=== PATIENT | female | born 1960 | race Caucasian/White ===

== ENCOUNTER 2021-04-17 04:48 | Emergency (ER) | payer BC ==
[2021-04-17] MEDS ORDERED: Ketorolac 30 MG/ML SDV IM ONE (05:09)
[2021-04-17] MEDS ORDERED: Ondansetron 4 MG Tab.DIS PO ONE (05:10)
--- NOTE | 2021-04-17 06:03 | CT ---
For Patients: As a result of the Century Cures Act, medical imaging exams and procedure reports are released immediately into your electronic medical record. You may view this report before your referring provider. If you have questions, please contact your health care provider. INDICATION: Left flank pain. TECHNIQUE: CT abdomen and pelvis without intravenous contrast. Coronal and sagittal reformats. COMPARISON: None available. FINDINGS: Imaged lower chest unremarkable. The unenhanced liver, gallbladder, pancreas, spleen, and adrenals are unremarkable. Symmetric renal size. Left ureterovesical junction 4 mm calculus (series 201, image 144) with mild upstream hydroureteronephrosis. No additional urolithiasis or right-sided hydronephrosis. Decompressed urinary bladder. Anteverted uterus with exophytic fibroid anteriorly measuring up to approximately 4.5 cm, likely exerting mass effect on the urinary bladder (series 204, image 85). The bowel appears normal in caliber and thickness diffusely. Small-moderate fat containing supraumbilical ventral hernia. No free air, free fluid, focal collection, or lymphadenopathy. Normal caliber abdominal aorta with mild atherosclerotic calcification. No suspicious osseous lesion. IMPRESSION: 1. Left ureterovesical junction 4 mm calculus with mild upstream hydroureteronephrosis. 2. Fibroid uterus with mass effect on the urinary bladder. 3. Fat containing supraumbilical ventral hernia. Dictated by Abebe Stanton MD @ 04/17/2021 6:01:57 AM Please note that all CT scans at this facility use dose modulation, iterative reconstruction, and/or weight-based dosing when appropriate to reduce radiation dose to as low as reasonably achievable. Dictated by: Abebe Stanton MD @ 04/17/2021 06:02:02 (Electronically Signed)
[2021-04-17] MEDS ORDERED: Tamsulosin 0.4 MG Cap.ER PO ONE (06:16)
--- NOTE | 2021-04-17 06:40 | EDM.PDOC ---
ED HPI GENERAL MEDICAL PROBLEM - General Chief Complaint: Genitourinary Problem Stated Complaint: LEFT SIDE BACK PAIN Time Seen by Provider: 04/17/21 05:06 - History of Present Illness INITIAL COMMENTS - FREE TEXT/NARRATIVE: HISTORY AND PHYSICAL: History of present illness: Is a 60-year-old female with a history significant for hypertension who presents ER today secondary to left flank pain and frequency. Patient reports that she was recently diagnosed with a urinary tract infection and was given a prescription for antibiotics for 2 days. Patient reports that she completed her antibiotics and felt better however her pain and symptoms recurred again. Patient denies any recent fevers, shakes, chills, nausea, vomiting, diarrhea. Patient denies any hematuria but does admit to dysuria and urgency as well as frequency. Patient denies any history of diabetes, liver, lung, kidney problems. Patient reports that she has had urinary tract infections in the past. Patient denies any URI symptoms. Patient has any melena or bright red blood per rectum. Patient denies any abdominal pain or discomfort. Patient reports the pain is intermittent in nature and is in her left flank. Review of systems: As per history of present illness and below otherwise all systems reviewed and negative. Past medical history: As per history of present illness and as reviewed below otherwise noncontributory. Surgical history: As per history of present illness and as reviewed below otherwise noncontributory. Social history: No reported history of drug abuse. Family history: As per history of present illness and as reviewed below otherwise noncontributory. Physical exam: This patient was seen and evaluated during the 2019 SARS-CoV-2 novel coronavirus pandemic period. Community viral transmission is ongoing at time of this encounter and the emergency department is operating under pandemic response procedures. Constitutional: Patient is oriented to person, place, and time. Appears well- developed and well-nourished. No distress. HEENT: Moist mucous membranes Head: Normocephalic and atraumatic Eyes: Right eye exhibits no discharge. Left eye exhibits no discharge. No scleral icterus Neck: Normal range of motion. No tracheal deviation present. Cardiovascular: Normal rate and regular rhythm. Pulmonary: Effort normal, no respiratory distress. Abd: Soft, nondistended, no rebound/guarding, no psoas or obturator signs, no tenderness at Mcberney's point, no Chaparro's sign. Pt does not present with an exam that would be consistent with an acute surgical abdomen at this time, nontender to deep palpation throughout. Patient does have tenderness palpation to her left flank region. Musculoskeletal: Normal range of motion Neurologic: Alert and oriented to person, place and time. Skin: [place], warm and dry. Psychiatric: Normal mood and affect. Behavior is normal. Judgment and thought content normal. Nursing note and vital signs have been reviewed Diagnostics: CT scan of abdomen pelvis without IV contrast reveals a 4 mm stone at the UVJ with mild amount of hydronephrosis. Urinalysis without evidence of infection. Therapeutics: Toradol 30 mg IM Flomax 0.4 mg p.o. Assessment and plan: 60-year-old female who presented to the ER today secondary to left flank pain after recent diagnosis and treatment for urinary tract infection. In the ED, the patient symptoms appear to be more consistent with renal colic. CT scan of the abdomen pelvis without contrast does confirm the diagnosis. Patient was given Toradol 30 mg IM with significant resolution of her pain and discomfort. I have discussed the results with the patient and given her a urine strainer as well as a urine pain to utilize to assist with catching the stone. Patient will be referred to urology for further outpatient evaluation. Given that her stone is 4 mm and that she is currently pain-free and comfortable and that there is no infection of sepsis or UTI, patient is stable for discharge home. Reassessment at the time of disposition demonstrates that the patient is in no acute distress. The patient has remained stable throughout the entire ED visit and is without objective evidence for acute process requiring urgent intervention or hospitalization. The patient is stable for discharge, counseling is provided as documented above, discussed symptomatic treatment and specific conditions for return. I have spoken with the patient/caregiver and discussed todays findings, in addition to providing specific details for the plan of care. Questions are answered and there is agreement with the plan. Definitive disposition and diagnosis as appropriate pending reevaluation and review of above. - Related Data Allergies Allergy/AdvReac Type Severity Reaction Status Date / Time aspirin Allergy Other Verified 04/17/21 05:09 Home Meds: Home Meds Ibuprofen 600 mg PO Q6HR PRN #30 tablet 04/17/21 [Rx] Ondansetron [Zofran ODT] 4 mg PO Q6H PRN #12 tab.dis 04/17/21 [Rx] Tamsulosin HCl [Flomax] 0.4 mg PO BEDTIME #7 cap.er.24h 04/17/21 [Rx] traMADol [Ultram] 50 mg PO Q6H PRN #12 tab 04/17/21 [Rx] Past Medical History Cardiovascular History: Reports: Hypertension Genitourinary History: Reports: UTI, Recurrent Social & Family History - Tobacco Use Tobacco Use Status *Q: Never Tobacco User - Recreational Drug Use Recreational Drug Use: No ED ROS GENERAL - Review of Systems Review Of Systems: See Below ED EXAM, GENERAL - Physical Exam Exam: See Below Course - Vital Signs Last Recorded V/S: Last Vital Signs Temp 97.2 F 04/17/21 05:07 Pulse 72 04/17/21 05:07 Resp 20 04/17/21 05:07 BP 188/92 H 04/17/21 05:07 Pulse Ox 96 04/17/21 05:07 - Orders/Labs/Meds Labs: Laboratory Tests 04/17/21 Range/Units 05:04 Urine Color YELLOW Urine Appearance CLEAR Urine pH 6.0 (5.0-8.0) Ur Specific [place] 1.025 (1.001-1.035) Urine Protein NEGATIVE (NEGATIVE) mg/dL Urine Glucose (UA) NEGATIVE (NEGATIVE) mg/dL Urine Ketones NEGATIVE (NEGATIVE) mg/dL Urine Occult Blood SMALL H (NEGATIVE) Urine Nitrite NEGATIVE (NEGATIVE) Urine Bilirubin NEGATIVE (NEGATIVE) Urine Urobilinogen 0.2 (<2.0) EU/dL Ur Leukocyte Esterase NEGATIVE (NEGATIVE) Urine RBC 1-3 (0-2/HPF) Urine WBC 0-1 (0-5/HPF) Ur Epithelial Cells RARE (NONE-FEW) Urine Bacteria RARE (NEGATIVE) Meds: Medications Discontinued Medications Generic Name Dose Route Start Last Admin Trade Name Freq PRN Reason Stop Dose Admin Ketorolac Tromethamine 30 mg 04/17/21 05:09 04/17/21 05:17 Ketorolac 30 Mg/Ml Sdv IM 04/17/21 05:10 30 mg ONETIME ONE Administration Ondansetron HCl 4 mg 04/17/21 05:10 04/17/21 05:15 Ondansetron 4 Mg Tab.Dis PO 04/17/21 05:11 4 mg ONETIME ONE Administration Tamsulosin HCl 0.4 mg 04/17/21 06:16 Tamsulosin 0.4 Mg Cap.Er PO 04/17/21 06:17 ONETIME ONE Departure - Departure Time of Disposition: 06:41 Disposition: Home, Self-Care 01 Condition: Good Clinical Impression: Hydronephrosis concurrent with and due to calculi of kidney and ureter Hydronephrosis Qualifiers: Hydronephrosis type: with ureteral calculous obstruction Qualified Code(s): N13.2 - Hydronephrosis with renal and ureteral calculous obstruction - Discharge Information Instructions: Hydronephrosis Referrals: PCP,None [Primary Care Provider] - Additional Instructions: You were seen and evaluated in the ER today secondary to pain to your left flank. The CT scan of your abdomen pelvis revealed that you have a 4 mm kidney stone at the junction of your ureter in your bladder. You will be discharged home with a prescription for Ultram as well as ibuprofen to assist with your pain and discomfort. We will also write you a prescription for Flomax which will help push the stone out. Please use the urine strainer and the urine pain that was provided for you to assist with catching the stone. Once you catch the stone, you should take you to your doctor for further analysis of the type of stone that you generate. You can call [facility] and ask to have an appointment with Dr. Burrows, their urologist. The phone number there is [phone]. The following information is given to patients seen in the emergency department who are being discharged to home. This information is to outline your options for follow-up care. We provide all patients seen in our emergency department with a follow-up referral. The need for follow-up, as well as the timing and circumstances, are variable depending upon the specifics of your emergency department visit. If you don't have a primary care physician on staff, we will provide you with a referral. We always advise you to contact your personal physician following an emergency department visit to inform them of the circumstance of the visit and for follow-up with them and/or the need for any referrals to a consulting specialist. The emergency department will also refer you to a specialist when appropriate. This referral assures that you have the opportunity for follow-up care with a specialist. All of these measure are taken in an effort to provide you with optimal care, which includes your follow-up. Under all circumstances we always encourage you to contact your private physician who remains a resource for coordinating your care. When calling for follow-up care, please make the office aware that this follow-up is from your recent emergency room visit. If for any reason you are refused follow-up, please contact the [facility] Emergency Department at and asked to speak to the emergency department charge nurse. [facility] [address] [place] [id number] [facility] [address] [place] [id number] Sepsis Event Note (ED) - Evaluation Sepsis Screening Result: No Definite Risk - Focused Exam Vital Signs: Vital Signs Temp Pulse Resp BP Pulse Ox 04/17/21 05:07 97.2 F 72 20 188/92 H 96
== END 2021-04-17 07:07 | disposition home or self-care (01) ==
LOC: MW.ED 04:48
DX: N13.2 Hydronephrosis with renal and ureteral calculous obstruction (principal); I10 Essential (primary) hypertension; Z88.8 Allergy status to other drugs, medicaments and biological substances
CPT/HCPCS: 74176; 81001; 96372; 99284; A9270; J1885; 99283